=== PATIENT | female | born 1945 | race Caucasian/White ===

== ENCOUNTER 2020-12-08 22:58 | Emergency (ER) | payer OTHER, MEDICAID ==
[~2020-12-08] VITALS: Ht 154.9 cm; Wt 89.4 kg
[~2020-12-08 22:58] MED LIST: ANASTROZOLE1 MG PO; CARVEDILOL12.5 MG PO; COREG6.25 MG PO; COZAAR 25 MG TA25 M1 PO; FELDENE20 MG PO; IMITREX100 MG PO; MIRAPEX0.5 MG PO; NORCO 5-325 TA1 EACH PO; PRILOSEC20 MG PO; WELLBUTRIN XL150 MG PO; ZANAFLEX4 MG PO; ZOLOFT50 MG PO; ZOVIRAX400 MG PO
[2020-12-08 23:52] LABS: CALCIUM 8.4 mg/dL (8.5-10.1); POTASSIUM 3.4 mmol/L (3.5-5.1)
[2020-12-08 23:56] LABS: ALBUMIN 2.5 g/dL (3.4-5.0); TOTAL BILIRUBIN 0.3 mg/dL (<0.1-1.0); TOTAL PROTEIN 6.4 g/dL (6.4-8.2)
[2020-12-09 01:14] LABS: HEMATOCRIT 31.2 % (37.0-47.0); HEMOGLOBIN 10.2 gm/dL (12.0-15.0); MCH 28.3 pg (26.0-34.0); MCHC 32.8 g/dL (28.0-37.0); MCV 86.1 fL (80.0-100.0); MPV 7.5 fl. (7.2-11.1); NUCLEATED RBCS 0 /100WBC; PLATELET COUNT* 422 thou/uL (150-400); RBC 3.62 mil/uL (4.20-5.00); RDW-CV 16.1 % (10.5-14.5); WBC 17.2 thou/uL (4.0-11.0)
[2020-12-09 01:16] LABS: ABSOLUTE BASOPHILS 0.2 thou/uL (0.0-0.2); ABSOLUTE EOSINOPHILS 0.2 thou/uL (0.0-0.7); ABSOLUTE LYMPHOCYTES 2.4 thou/uL (0.8-5.3); ABSOLUTE MONOCYTES 0.5 thou/uL (0.0-1.2); ABSOLUTE NEUTROPHILS 13.9 thou/uL (1.6-8.1); PLATELET ESTIMATE ADEQUATE
[2020-12-09 01:41] LABS: URINE BILIRUBIN NEGATIVE (Negative); URINE BLOOD NEGATIVE (Negative); URINE CLARITY CLEAR; URINE COLOR YELLOW; URINE GLUCOSE-RANDOM NEGATIVE (Negative); URINE KETONES NEGATIVE (Negative); URINE LEUKOCYTES-REFLEX NEGATIVE (Negative); URINE NITRITE-REFLEX NEGATIVE (Negative); URINE PROTEIN NEGATIVE (Negative); URINE SPECIFIC GRAVITY 1.015 (1.005-1.030); URINE UROBILINOGEN 0.2 E.U./dl (0.2-1.0)
[2020-12-09 02:56] VITALS: BP 116/59
--- NOTE | 2020-12-09 14:14 | EKG ---
[place] [address] ELECTROCARDIOGRAM REPORT Name: GENNAKIMBERLY Eron Room: [facility]#: [id number] Admission: 12/08/20 Attend Phys: Discharge: 12/09/20 Date of : 47 Date of Service: 12/09/20 0011 Report #: [id number] THIS REPORT FOR: //name// [facility] ED Test Date: 2020-12-09 Test Time: 00:11:16 Pat Name: KIMBERLY VAIL Department: Room: Gender: Smeller: : 1945 Requested By: Saritha Miranda Order Number: [id number] MD: Brice Guadarrama Measurements Intervals [place] Rate: 63 P: 57 [place]: 144 QRS: -8 QRSD: 111 T: 28 QT: 407 QTc: 417 Interpretive Statements Sinus rhythm RSR' in V1 or V2, right VCD Compared to ECG 09/24/2015 01:20:50 RSR' in V1 or V2 now present Sinus bradycardia no longer present ST (T wave) deviation no longer present Possible ischemia no longer present Electronically Signed On 12-09-2020 14:14:43 CDT by Brice Guadarrama [email or web address] <ELECTRONICALLY SIGNED> By: Brice Guadarrama MD, [facility] 12/09/20 1414 001 001 Brice Guadarrama MD, [facility] /EPI
== END 2020-12-09 02:58 | disposition home or self-care (01) ==
LOC: M.ERS 22:58
PROVIDERS: Personal Emergency Response Attendant
DX: R53.1 Weakness (principal); M54.6 Pain in thoracic spine; Z48.01 Encounter for change or removal of surgical wound dressing; G43.909 Migraine, unspecified, not intractable, without status migrainosus; M79.7 Fibromyalgia; I10 Essential (primary) hypertension; M19.90 Unspecified osteoarthritis, unspecified site; Z85.3 Personal history of malignant neoplasm of breast; Z90.711 Acquired absence of uterus with remaining cervical stump; Z79.899 Other long term (current) drug therapy; Z88.6 Allergy status to analgesic agent; Z88.8 Allergy status to other drugs, medicaments and biological substances

== ENCOUNTER 2021-01-13 18:32 | Emergency (ER) | payer OTHER, MEDICAID ==
[~2021-01-13] VITALS: Ht 154.9 cm; Wt 84.8 kg
[2021-01-13 21:38] VITALS: BP 170/76
== END 2021-01-13 21:39 | disposition home or self-care (01) ==
LOC: M.ERS 18:32
DX: T82.594A Other mechanical complication of infusion catheter, initial encounter (principal); G43.909 Migraine, unspecified, not intractable, without status migrainosus; M79.7 Fibromyalgia; M19.90 Unspecified osteoarthritis, unspecified site; Z79.899 Other long term (current) drug therapy; Y92.89 Other specified places as the place of occurrence of the external cause